=== PATIENT | female | born 1975 | race African-American/Black ===

== ENCOUNTER 2022-07-23 19:20 | Emergency (ER) | payer OTHER ==
[~2022-07-23] VITALS: Ht 167.6 cm; Wt 76.0 kg
[2022-07-23 19:22] VITALS: BP 151/95
[2022-07-23] MEDS ORDERED: CYCLOBENZAPRINE 10MG TABLET PO ONE (21:15)
[2022-07-23] MEDS ORDERED: IBUPROFEN 600MG TABLET PO ONE (21:15)
[2022-07-23] MEDS ORDERED: NAPR-681 MT (22:11)
[2022-07-23] MEDS ORDERED: CYCL10TA21 MT (22:11)
== END 2022-07-23 22:30 | disposition home or self-care (01) ==
LOC: ER 19:20
DX: S16.1XXA Strain of muscle, fascia and tendon at neck level, initial encounter (principal); I49.9 Cardiac arrhythmia, unspecified; V49.9XXA Car occupant (driver) (passenger) injured in unspecified traffic accident, initial encounter; Y93.89 Activity, other specified; Y92.89 Other specified places as the place of occurrence of the external cause; Y99.8 Other external cause status
CPT/HCPCS: 71045; 93005; 99283

== ENCOUNTER 2024-08-28 07:46 | Emergency (ER) | payer OTHER ==
[~2024-08-28] VITALS: Ht 167.6 cm; Wt 81.6 kg
[~2024-08-28 07:46] MED LIST: CYCL10TA21 MT; NAPR-681 MT
[2024-08-28 07:53] VITALS: O2SAT 97
[2024-08-28 08:37] LABS: BASOPHILS % 0.6 % (0.0-2.0); EOSINOPHILS % 0.7 % (0.0-5.0); HEMATOCRIT. 39.7 % (36.0-48.0); HEMOGLOBIN. 12.7 g/dL (12.0-16.0); LYMPHOCYTES % 27.3 % (20.0-50.0); MEAN CORPUSCULAR HEMOGLOBIN 26.2 pg (28.0-32.0); MEAN CORPUSCULAR HGB CONC 31.9 g/dL (31.0-37.0); MEAN PLATELET VOLUME 9.1 fl (7.4-10.4); MONOCYTES % 9.5 % (2.0-8.0); NEUTROPHILS % 61.9 % (40.0-76.0); PLATELET 236 x1000/uL (130-400); RED BLOOD CELL COUNT 4.84 mill/uL (4.2-5.4); RED CELL DISTRIBUTION WIDTH 14.1 % (11.6-14.6); WHITE BLOOD COUNT 4.8 x1000/uL (4.5-11.0)
[2024-08-28] MEDS: ONDANSETRON 4MG ODT PO STA (08:44)
[2024-08-28] MEDS: ACETAMINOPHEN 325MG TABLET PO STA (08:44)
[2024-08-28 08:49] LABS: CALCIUM 9.5 mg/dL (8.7-10.4); CARBON DIOXIDE 24 mEq/L (21-32); CHLORIDE 108 mEq/L (98-107); POTASSIUM 3.7 mEq/L (3.5-5.1); SODIUM 138 mEq/L (136-145)
[2024-08-28 08:52] LABS: CREATININE 0.8 mg/dL (0.6-1.0)
[2024-08-28 08:53] LABS: GLUCOSE 98 mg/dL (70-105); PROTHROMBIN TIME 10.4 sec (9.6-11.0); UREA NITROGEN BLOOD 10 mg/dL (9-23)
[2024-08-28 08:54] LABS: ALANINE AMINOTRANSFERASE 29 IU/L (10-49); ALBUMIN 4.4 g/dL (3.2-4.8); ASPARTATE AMINOTRANSFERASE 28 IU/L (<34)
[2024-08-28 08:55] LABS: BILIRUBIN DIRECT 0.1 mg/dL (<=3.0); BILIRUBIN TOTAL 0.5 mg/dL (0.1-1.0); PROTEIN TOTAL 7.5 g/dL (6.0-8.3)
[2024-08-28 09:00] LABS: TROPONIN I HIGH SENSITIVITY < 4 ng/L (3.0-34)
[2024-08-28] MEDS: KETOROLAC 15MG/ML VIAL IV ONE (09:24)
[2024-08-28] MEDS: ONDANSETRON HCL 4MG/2ML INJ IV ONE (09:24)
[2024-08-28 10:30] VITALS: BP 142/83; PULSE 65; RESP 18; TEMP 36.7; O2SAT 98
== END 2024-08-28 10:59 | disposition home or self-care (01) ==
LOC: ER 07:46
DX: R55 Syncope and collapse (principal); R11.2 Nausea with vomiting, unspecified; I10 Essential (primary) hypertension; Z79.1 Long term (current) use of non-steroidal anti-inflammatories (NSAID); Z79.899 Other long term (current) drug therapy
CPT/HCPCS: 80076; 80048; 82962; 85025; 85610; 84484; 36415; 71045; 93005; 96374; 96375; 99285; J1885; J2405; Z7610 ×2